=== PATIENT | female | born 1965 | race Caucasian/White ===

== ENCOUNTER → 2021-07-18 | Outpatient (CLI) | payer OTHER ==
--- NOTE | 2021-07-18 11:08 | MR ---
MR abdomen without contrast HISTORY: Abnormal findings prior imaging, abnormal CT Multiplanar multisequence imaging obtained through the abdomen, no intravenous contrast Patient's prior studies aren't available for correlation. Lack of intravenous contrast diminishes renal cyst characterization, may diminish sensitivity and spe cificity of the exam. The right kidney shows a focus which is hyperintense on T2, hypointense on T1-weighted images measuri ng approximately 12 to 13 mm in size. There is no evident sizable soft tissue component. The left kid tim shows at the level of the mid pole a focus with similar signal characteristics measuring approxim ately 1 cm in size. There is no hydronephrosis evident bilaterally. Aorta shows normal caliber. There is no retroperitoneal adenopathy or ascites evident. Multiple T2 hy perintense foci are scattered within the liver which show hypointense appearance on T1-weighted seque nces, septated hourglass shaped focus is present in the posterior right lobe, axial image #34 series 601 measuring 2.6 x 1.6 cm, findings likely represent cysts. Signal dropout within the liver on out o f phase imaging suggests hepatic steatosis. The gallbladder is unremarkable. The spleen is at the upper limit of normal for size. The adrenal gla nds and pancreas are within normal limits. Lung bases show no fluid signal to suggest effusion. IMPRESSION: Findings likely represent simple cyst at the lower pole of the right kidney, confirmation could be performed with ultrasound or consider follow-up to assess for stability. Lack of contrast l imits evaluation.
== END | disposition home or self-care (01) ==
LOC: RADMRIMAIN 05:44
PROVIDERS: ATTEND Internal Medicine
DX: R93.5 Abnormal findings on diagnostic imaging of other abdominal regions, including retroperitoneum (principal)
CPT/HCPCS: 74181